=== PATIENT | female | born 1985 | race Caucasian/White ===

== ENCOUNTER 2021-04-13 19:21 | Observation (INO) ==
[2021-04-13] MEDS ORDERED: EPHEDrine 50 MG/ML VIAL IVP PRN (19:38)
[2021-04-13] MEDS ORDERED: Epidural Premix (fent/bupiv) 110 ML EP SCH (19:45)
[2021-04-13] MEDS ORDERED: Topiramate 100 MG TABLET PO ONE (20:10)
[2021-04-13 20:38] LABS: Basophils % 0.6 %; Eosinophils # 0.1 K/mcL (0.0-0.6); Eosinophils % 1.1 %; Hematocrit 35.8 % (35.3-44.9); Hemoglobin 11.5 g/dL (11.5-15.4); Immature Granulocytes % 0.3 % (0-4); Lymphocytes # 2.4 K/mcL (0.6-4.6); Lymphocytes % 34.6 %; Mean Corpuscular HGB Conc 32.1 g/dL (31.6-35.5); Mean Corpuscular Hemoglobin 30.4 pg (28.0-33.3); Mean Corpuscular Volume 94.7 fL (83.0-100.0); Mean Platelet Volume 12.1 fL (9.4-12.4); Monocytes # 0.6 K/mcL (0.0-1.3); Monocytes % 8.2 %; Neutrophils # 3.9 K/mcL (1.6-8.9); Platelet Count 154 K/mcL (140-400); Red Blood Count 3.78 M/mcL (3.82-4.97); Red Cell Distribution Width 14.7 % (11.5-14.5); Segmented Neutrophils % 55.2 %; White Blood Count 7.1 K/mcL (4.3-11.1)
[2021-04-13 20:57] LABS: Alanine Aminotransferase 10 Units/L (7-52); Aspartate Amino Transferase 15 Units/L (13-39); BUN/Creatinine Ratio 8 (6-26); Blood Urea Nitrogen 6 mg/dL (6-20); Lactate Dehydrogenase 192 Units/L (140-271); Uric Acid 7.5 mg/dL (2.3-7.6); eGFR For African Americans > 60 (> 60); eGFR For Non-African Americans > 60 (> 60)
[2021-04-13] MEDS ORDERED: Topiramate 25 MG TABLET PO ONE (21:55)
[2021-04-14 07:50] VITALS: BP 114/78
[2021-04-14] MEDS ORDERED: Folic Acid 1 MG TABLET PO SCH (09:00)
[2021-04-14] MEDS ORDERED: Topiramate 100 MG TABLET PO SCH (09:00)
[2021-04-14] MEDS ORDERED: Prenatal Vit/FA 1 EACH TABLET PO SCH (09:00)
[2021-04-14] MEDS ORDERED: Topiramate 25 MG TABLET PO SCH (21:00)
== END 2021-04-14 12:15 | disposition home or self-care (01) ==
LOC: 1NENULAB → 1NENUOBS 04-14 00:40
PROVIDERS: ADMIT Obstetrics & Gynecology; ATTEND Obstetrics & Gynecology

== ENCOUNTER 2021-04-28 05:14 | Inpatient (IN) ==
[2021-04-28] MEDS ORDERED: Ringers Solution, Lactated 1,000 ML ONE (05:36)
[2021-04-28] MEDS ORDERED: Azithromycin 500 MG in 0.9 % Sodium Chloride 250 ML IVPB PRN (05:53)
[2021-04-28] MEDS ORDERED: Famotidine 20 MG/2 ML VIAL IVP ONE (05:53)
[2021-04-28] MEDS ORDERED: CeFAZolin Syr 3,000MG/30 ML 3,000 MG/30 ML SYRINGE IVPB ONE (05:53)
[2021-04-28] MEDS ORDERED: Metoclopramide 10 MG/2 ML VIAL IVP ONE (05:53)
[2021-04-28] MEDS ORDERED: Oxytocin 20 units/ LR 1000 mL 20 UNIT/1,000 ML BAG IVC ONE (05:53)
[2021-04-28] MEDS ORDERED: Ringers Solution, Lactated 1,000 ML IVC ONE (05:53)
[2021-04-28] MEDS ORDERED: Oxytocin 20 units/ LR 1000 mL 20 UNIT/1,000 ML BAG IVC SCH ×2 (06:00→11:59)
[2021-04-28] MEDS ORDERED: Ringers Solution, Lactated 1,000 ML IVC SCH (06:00)
[2021-04-28 06:22] LABS: Basophils % 0.3 %; Eosinophils % 0.6 %; Hematocrit 37.5 % (35.3-44.9); Hemoglobin 11.9 g/dL (11.5-15.4); Immature Granulocytes % 0.4 % (0-4); Lymphocytes # 2.4 K/mcL (0.6-4.6); Lymphocytes % 36.4 %; Mean Corpuscular HGB Conc 31.7 g/dL (31.6-35.5); Mean Corpuscular Hemoglobin 29.9 pg (28.0-33.3); Mean Corpuscular Volume 94.2 fL (83.0-100.0); Mean Platelet Volume 12.6 fL (9.4-12.4); Monocytes # 0.6 K/mcL (0.0-1.3); Monocytes % 8.5 %; Neutrophils # 3.6 K/mcL (1.6-8.9); Platelet Count 137 K/mcL (140-400); Red Blood Count 3.98 M/mcL (3.82-4.97); Red Cell Distribution Width 14.7 % (11.5-14.5); Segmented Neutrophils % 53.8 %; White Blood Count 6.7 K/mcL (4.3-11.1)
[2021-04-28 06:37] LABS: Glucose 69 mg/dL (70-105)
[2021-04-28] MEDS ORDERED: Ondansetron 4 MG/2 ML VIAL IVP PRN ×2 (07:33→11:59)
[2021-04-28] MEDS ORDERED: *HR* FentaNYL (PF) 100 MCG/2 ML VIAL IVP PRN (07:33)
[2021-04-28] MEDS ORDERED: *HR* OxyCODONE Immed Rel 5 MG TABLET PO PRN (07:33)
[2021-04-28] MEDS ORDERED: *HR* Nalbuphine 10 MG/ML AMPUL IV PRN (07:35)
[2021-04-28] MEDS ORDERED: *HR* LORazepam 2 MG/ML VIAL ONE (07:39)
[2021-04-28] MEDS ORDERED: *HR* FentaNYL (PF) 100 MCG/2 ML VIAL ONE (07:41)
[2021-04-28] MEDS ORDERED: *HR* Morphine Sulfate/PF 10 MG/10 ML AMPUL ONE (07:41)
[2021-04-28] MEDS ORDERED: Acetaminophen IV 1,000 MG/100 ML BAG IVPB ONE (07:42)
[2021-04-28] MEDS ORDERED: Ondansetron 4 MG/2 ML VIAL ONE (07:42)
[2021-04-28 08:09] LABS: Amphetamine Screen,Urine Negative ng/mL (Cutoff=1000); Barbiturate Screen,Urine Negative ng/mL (Cutoff=200); Benzodiazepines Screen,Urine Negative ng/mL (Cutoff=200); Cannabinoid Screen,Urine Negative ng/mL (Cutoff = 50); Cocaine Screen,Urine Negative ng/mL (Cutoff= 300); Opiate Screen,Urine Negative ng/mL (Cutoff=300); Phencyclidine Screen,Urine Negative ng/mL (Cutoff=25)
[2021-04-28 09:33] LABS: Alanine Aminotransferase 12 Units/L (7-52); Aspartate Amino Transferase 21 Units/L (13-39); BUN/Creatinine Ratio 14 (6-26); Blood Urea Nitrogen 11 mg/dL (6-20); Lactate Dehydrogenase 222 Units/L (140-271); eGFR For African Americans > 60 (> 60); eGFR For Non-African Americans > 60 (> 60)
[2021-04-28] MEDS ORDERED: Ketorolac 30 MG/ML VIAL IVP STA (10:00)
[2021-04-28 10:39] LABS: Creatinine,Urine 119 mg/dL; Protein/Creatinine Ratio,Urine 2.35 mg/mg (0.00-0.20)
[2021-04-28 10:47] LABS: Bacteria,Urine Few per hpf (None-Few); Bilirubin,Urine Negative (Negative); Blood,Urine Small (Negative); Clarity,Urine Clear (Clear); Color,Urine Yellow (Yellow); Glucose,Urine (UA) Normal (Normal); Ketones,Urine Negative (Negative); Leukocyte Esterase,Urine Negative (Negative); Mucus,Urine Few per lpf (None-Few); Nitrite,Urine Negative (Negative); PH,Urine 6.5 pH Units (5.0-8.0); Protein,Urine >=300 mg/dL (Neg-Trace); Specific Gravity,Urine > 1.030 (1.010-1.025); Squamous Epithelial Cell,Urine Few per hpf (None-Few); Urobilinogen,Urine Normal (Normal)
[2021-04-28] MEDS ORDERED: Metoclopramide 10 MG/2 ML VIAL IVP PRN (11:59)
[2021-04-28] MEDS ORDERED: *HR* HYDROcodone/Acet 5/325 mg TABLET PO PRN (12:35)
[2021-04-28] MEDS: Ketorolac 30 MG/ML VIAL IVP SCH ×2 (12:57→18:33)
[2021-04-28] MEDS ORDERED: Ketorolac 30 MG/ML VIAL IVP SCH ×2 (16:00→18:00)
[2021-04-28] MEDS: Simethicone 80 MG TAB.CHEW PO SCH ×2 (16:01→21:47)
[2021-04-28] MEDS: Acetaminophen 325 MG TABLET PO SCH (18:33)
[2021-04-28] MEDS: Topiramate 25 MG TABLET PO SCH (21:48)
[2021-04-29] MEDS: Ketorolac 30 MG/ML VIAL IVP SCH (00:09)
[2021-04-29] MEDS: Acetaminophen 325 MG TABLET PO SCH ×4 (00:12→19:48)
[2021-04-29] MEDS ORDERED: Ibuprofen 600 MG TABLET PO SCH (04:00)
[2021-04-29] MEDS: Ibuprofen 600 MG TABLET PO SCH ×3 (05:42→19:47)
[2021-04-29] MEDS: Prenatal Vit/FA 1 EACH TABLET PO SCH (08:01)
[2021-04-29] MEDS: *HR* Enoxaparin 80 MG/0.8 ML SYRINGE SQ SCH ×2 (08:01→19:48)
[2021-04-29] MEDS: Topiramate 100 MG TABLET PO SCH (08:01)
[2021-04-29] MEDS: Simethicone 80 MG TAB.CHEW PO SCH ×3 (08:01→19:48)
[2021-04-29 18:47] LABS: Basophils % 0.2 %; Eosinophils # 0.1 K/mcL (0.0-0.6); Eosinophils % 1.5 %; Hematocrit 33.9 % (35.3-44.9); Hemoglobin 10.6 g/dL (11.5-15.4); Immature Granulocytes % 0.5 % (0-4); Lymphocytes # 2.5 K/mcL (0.6-4.6); Lymphocytes % 26.8 %; Mean Corpuscular HGB Conc 31.3 g/dL (31.6-35.5); Mean Corpuscular Hemoglobin 30.5 pg (28.0-33.3); Mean Corpuscular Volume 97.4 fL (83.0-100.0); Mean Platelet Volume 12.7 fL (9.4-12.4); Monocytes # 0.7 K/mcL (0.0-1.3); Monocytes % 7.5 %; Neutrophils # 5.8 K/mcL (1.6-8.9); Platelet Count 129 K/mcL (140-400); Red Blood Count 3.48 M/mcL (3.82-4.97); Red Cell Distribution Width 15.3 % (11.5-14.5); Segmented Neutrophils % 63.5 %; White Blood Count 9.1 K/mcL (4.3-11.1)
[2021-04-29] MEDS: Topiramate 25 MG TABLET PO SCH (19:47)
[2021-04-30] MEDS: Acetaminophen 325 MG TABLET PO SCH (06:19)
[2021-04-30] MEDS: Ibuprofen 600 MG TABLET PO SCH ×2 (06:20→12:48)
[2021-04-30] MEDS: Simethicone 80 MG TAB.CHEW PO SCH (07:38)
[2021-04-30] MEDS: *HR* Enoxaparin 80 MG/0.8 ML SYRINGE SQ SCH (07:38)
[2021-04-30] MEDS: Topiramate 100 MG TABLET PO SCH (07:38)
[2021-04-30] MEDS: Prenatal Vit/FA 1 EACH TABLET PO SCH (07:38)
[2021-04-30 09:02] VITALS: O2SAT 99
[2021-04-30 12:19] VITALS: BP 127/78; PULSE 64; TEMP 97.9
== END 2021-04-30 16:11 | disposition home or self-care (01) | DRG 784 ==
LOC: 1NENULAB 05:14 → 1NENUOBS 11:47
PROVIDERS: ADMIT Obstetrics & Gynecology; ATTEND Obstetrics & Gynecology